=== PATIENT | female | born 1960 | race Two or more races ===

== ENCOUNTER → 2024-07-07 | Outpatient (CLI) | payer MEDICAID, SELFPAY ==
--- NOTE | 2024-07-07 13:36 | XR_ITS ---
Examination: Pelvic ultrasound, transabdominal, complete Technique: Transabdominal ultrasound of the pelvis performed using grayscale imaging Date and time of exam: July 07, 2024 at 1415 hours INDICATIONS: Postmenopausal vaginal bleeding beginning one month ago FINDINGS: Uterus 6.3 x 4.1 x 4.2 cm Abnormal thickened endometrial stripe 1.9 cm heterogeneous Ovaries obscured by bowel gas IMPRESSION: Abnormal thickened endometrial stripe, differential would include endometrial hyperplasia, malignant neoplasm of the endometrium, recommend MRI pelvis follow-up pre and postcontrast
== END | disposition home or self-care (01) ==
LOC: CDIM 13:31
PROVIDERS: PCP Nurse Practitioner Primary Care; Referring Provider Nurse Practitioner Primary Care; Visit Provider Nurse Practitioner Primary Care
DX: R93.89 Abnormal findings on diagnostic imaging of other specified body structures (principal)
CPT/HCPCS: 76856

== ENCOUNTER → 2024-08-16 | Outpatient (CLI) | payer MEDICAID, SELFPAY ==
--- NOTE | 2024-08-16 12:00 | XR_ITS ---
Examination: MRI pelvis with intravenous contrast. MRI pelvis without intravenous contrast. Date and time of exam: August 16, 2024 1245 hrs. Indications: Postmenopausal vaginal bleeding beginning May 2024, transvaginal pelvic sonogram July 07, 2024 thickened endometrium 19 mm, patient states pelvic pain beginning May 2024 Technique: Multiple axial, sagittal and coronal sections of the pelvis obtained. Transverse images, TR 6020, TE 107. T1 weighted transverse images, TR 582, TE 9.5. T2-weighted sagittal images, TR 4000, TE 105. T2-weighted sagittal images, TR 4000, TE 5. Coronal images, TR 4210, TE 107. Axial and coronal images are obtained post 10 cc intravenous injection, gadolinium. Findings: Anteverted uterus, 6 by 4 x 4 CM No discrete uterine mass Endometrial stripe on this study measures 4.7 mm without abnormal uterine enhancement on the postcontrast images No adnexal mass No free fluid in the pelvis Impression: Endometrial stripe on the precontrast images measures 4.7 mm No enhancing uterine mass on the postcontrast images Recommend repeat pelvic transvaginal sonography in 3 months
== END | disposition home or self-care (01) ==
PROVIDERS: PCP Nurse Practitioner Primary Care; Referring Provider Nurse Practitioner Primary Care; Visit Provider Nurse Practitioner Primary Care
DX: R93.89 Abnormal findings on diagnostic imaging of other specified body structures (principal)
CPT/HCPCS: 72197; A9579

== ENCOUNTER → 2024-09-06 | Outpatient (CLI) | payer MEDICAID, SELFPAY ==
--- NOTE | 2024-09-06 | XR_ITS ---
Examination: Diagnostic digital mammography, unilateral, left Computer aided detection 3-D breast Tomosynthesis, unilateral Date and time of exam: September 06, 2024 1046 hours INDICATIONS: Mammogram June 29, 2024 15 mm focal asymmetry retroareolar region left breast Technique: Nonmagnified MLO, CC views of the left breast have been obtained, reconstructed from 3-D Tomosynthesis images. R2 computer aided detection program utilized for evaluation of suspicious masses and/or abnormal calcifications. 3-D Tomosynthesis images obtained. Findings: Scattered areas of fibroglandular density 12 mm focal asymmetry remains retroareolar region left breast Impression: BI-RADS category 3: Probably benign findings One additional 6 month left mammogram follow-up is needed to document stability of retroareolar asymmetry described above
--- NOTE | 2024-09-06 10:30 | XR_ITS ---
Examination: Breast ultrasound, unilateral, left complete Date and time of exam: September 06, 2024 10:30 AM INDICATIONS: Mammogram June 29, 2024 15 mm focal asymmetry retroareolar region left breast, family history, daughter, breast cancer diagnosis 7 months ago Technique: Real-time michelle scale ultrasonographic imaging performed left breast including all 4 quadrants as well as nipple retroareolar and axillary region. Findings: Retroareolar oval mass circumscribed 10 x 3 x 9 mm IMPRESSION: BI-RADS Category 3: Probably benign findings One additional 6 month left breast sonogram is needed to document stability of the retroareolar nodule left breast
== END | disposition home or self-care (01) ==
LOC: CDIM 10:20
PROVIDERS: Referring Provider Nurse Practitioner Primary Care; Visit Provider Nurse Practitioner Primary Care
DX: R92.332 Mammographic heterogeneous density, left breast (principal); N64.89 Other specified disorders of breast; N63.42 Unspecified lump in left breast, subareolar
CPT/HCPCS: 76641; 77061; 77065; G0279

== ENCOUNTER 2024-09-16 09:30 | Outpatient (RCR) | payer MEDICAID, SELFPAY ==
--- NOTE | 2024-09-02 10:46 | PTNOTE_ITS ---
PT OP Initial Eval Patient Information Outpatient Physical Therapy Treatment Date: 09/02/24 Visit Reasons: Right shoulder pain Medical Diagnosis: Right Shoulder Pain Treatment Dx #1: Right Shoulder Pain Treatment Dx #2: Right Shoulder Mobility Deficits Start of Care: 09/02/24 Date of Onset: Apr 2024 Smoking Status Smoking Status: Never smoker Initial Assessment Subjective: Pt is a 64 y/o female reports of right shoulder pain (610) since Apr 2024. Xray showed moderate OA and MRI has not been done. Pt has limitation with lifting, chores, self care, cooking, cleaning, and performing recreational activities. Objective: Right Shoulder PROM: all motions are WFL with end range pain in all plane Right Shoulder AROM Flexion: 140 deg Abduction: 90 deg External Rotation: 80 deg Internal Rotation: 60 deg Right Shoulder MMTs: grossly 3-/5 Right Scapula MMTs: grossly 3-/5 Palpation: TTP supraspinatus tendon Assessment: Pt demonstrate right shoulder pain consistent with possible rotator cuff tear leading to difficulty with ADLs. Pt will attempt physical therapy if pain persist Pt will be refer back to provider for further consultation. Short Term and [employer] Goals 1) Increase right shoulder AROM WFL in 6 wks to be able to perform overhead motions 2) Decrease shoulder pain to 2/10 in 6 wks to be able to perform self care activities 3) Increase right shoulder MMTs grossly to 4/5 in 6 wks to be able to perform recreational activities 4) Indep with HEP Treatment Plan 1) Manual Therapy 2) Therapeutic Activities 3) Therapeutic Exercises 4) Modalities (ice, heat) Frequency and Duration: 2 x wk for 6 wks Certification Dates: 09/02/24 to 12/01/24 Procedure Charges OP PT Eval Mod Complex 30 minutes: Yes
--- NOTE | 2024-09-07 11:05 | PT.ODAYNRPT ---
PT Outpatient Daily Note OP Daily Note Outpatient Physical Therapy Treatment Date: 09/07/24 Visit Reasons: Right shoulder pain Subjective: Pt reports moderate shoulder pain today, mentioned that she has difficulty with reaching over head. Objective: Please see flow sheet for ther ex list. Assessment: Pt demonstrates poor activity tolerance due to pain response. Plan: Continue with POC. Length of Time (minutes) of Treatment: 30 Minutes Procedure Charges Therapeutic Exercise 30 minutes: Yes
--- NOTE | 2024-09-09 09:49 | PT.ODAYNRPT ---
PT Outpatient Daily Note OP Daily Note Outpatient Physical Therapy Treatment Date: 09/09/24 Visit Reasons: Right shoulder pain Subjective: Pt's shoulder still hurts. No change in pain or overall symptoms. Objective: Please see flow chart for list of ther ex performed Assessment: no change in pain post PT session; patient demonstrate improved shoulder AAROM in flexion and scaption Plan: Continue with PT Length of Time (minutes) of Treatment: 30 Minutes Procedure Charges Therapeutic Exercise 30 minutes: Yes
--- NOTE | 2024-09-14 09:53 | PT.ODAYNRPT ---
PT Outpatient Daily Note OP Daily Note Outpatient Physical Therapy Treatment Date: 09/14/24 Visit Reasons: Right shoulder pain Subjective: Pt reports shoulder is about the same. Objective: Please see flow sheet for ther x list. Assessment: Pt instructed on isometrics exercises for shoulder pt completed with pain and muscle fatigue. Plan: Continue with POC. Length of Time (minutes) of Treatment: 30 Minutes Procedure Charges Therapeutic Exercise 30 minutes: Yes
--- NOTE | 2024-09-16 09:49 | PT.ODAYNRPT ---
PT Outpatient Daily Note OP Daily Note Outpatient Physical Therapy Treatment Date: 09/16/24 Visit Reasons: Right shoulder pain Subjective: Pt's pain is about the same. Pt continues to have difficulty lifting her arm for overhead motions. Objective: Please see flow derrick for list of ther ex performed Assessment: no change in overall shoulder pain post PT session. Pt demonstrate slight improvement with flexion and scaption AAROM Plan: Continue with PT Length of Time (minutes) of Treatment: 30 Minutes Procedure Charges Therapeutic Exercise 30 minutes: Yes
== END 2024-09-16 23:59 | disposition home or self-care (01) ==
LOC: CPTX 09:30
PROVIDERS: PCP Nurse Practitioner Primary Care; Referring Provider Nurse Practitioner Primary Care; Visit Provider Nurse Practitioner Primary Care
DX: M25.511 Pain in right shoulder (principal); M19.011 Primary osteoarthritis, right shoulder
CPT/HCPCS: 97110; 97162

== ENCOUNTER 2024-09-27 10:30 | Outpatient (RCR) | payer MEDICAID, SELFPAY ==
--- NOTE | 2024-09-21 10:32 | PT.ODAYNRPT ---
PT Outpatient Daily Note OP Daily Note Outpatient Physical Therapy Treatment Date: 09/21/24 Visit Reasons: right shoulder pain Subjective: Pt's shoulder is 20% better and will like to continue physical therapy. Pt still notice pain and numbness down the arm but it's been less intense Objective: Please see flow chart for list of ther ex performed Assessment: progressing with shoulder AAROM in flexion and scaption, however, slight pain with scaption AAROM on finger ladder but able to complete instructed reps Plan: Continue with PT Length of Time (minutes) of Treatment: 30 Minutes Procedure Charges Therapeutic Exercise 30 minutes: Yes
--- NOTE | 2024-09-23 15:17 | PT.ODAYNRPT ---
PT Outpatient Daily Note OP Daily Note Outpatient Physical Therapy Treatment Date: 09/23/24 Visit Reasons: right shoulder pain Subjective: Pt reports R shoulder hurting more today feels it is due to the cold weather. Objective: Please see flow sheet for ther ex list. Assessment: Regressed interventions to accommodate reported pain. Plan: Continue with POC. Length of Time (minutes) of Treatment: 30 Minutes Procedure Charges Therapeutic Exercise 30 minutes: Yes
--- NOTE | 2024-09-27 12:24 | PT.ODS1RPT ---
PT OP Progress/Discharge Note Date of Service: 09/27/24 Progress Note/DC Note Progress Note/Discharge Note: DC Note Patient Information Visit Reasons: right shoulder pain Medical Diagnosis: Right Shoulder Pain Treatment Dx #1: Right Shoulder Pain Service Continue Service or Discharge: Discharge Discharge Date: 09/27/24 Status Subjective: Pt's shoulder is the same and continues to hurt. Pt mentioned she has limitation with ADLs, lifting the arms, and perform chores. Minimal changes with physical therapy. Objective: Right Shoulder AROM Flexion: 140 deg Abduction: 95 deg External Rotation: 90 deg Internal Rotation: 60 deg Right Shoulder MMTs: grossly 3/5 Right Scapula MMTs: grossly 3/5 Palpation: TTP supraspinatus tendon Assessment: Pt continues to have right shoulder pain leading to difficulty with ADLs. Minimal progress towards physical therapy noted. Recommend shoulder MRI to help rule in/out nature of pain. Pt was instructed on HEP last session and educated to continue exercises to maintian overall mobility. Pt performed all exercises safely, thank you for your referrals. Plan: D/C home with HEP and follow up with MD MELTON Recommend shoulder MRI Procedure Charges Therapeutic Exercise 30 minutes: Yes
--- NOTE | 2024-10-07 13:10 | PC.SS ---
SS follow up note; SS was contacted by patient's nurse and she informed SS that patient's family was requesting to Speak to SS. Patient's daughters and patient's son present at the time of encounter. Patient's daughter, Rosa expressed concerns in regards to discharge plan, she expressed feeling rushed in regards to discharge disposition. At the time there is one accepting facility that accepted patient under hospice care, however it's in [place], which family has declined and expressed that it's to far out and could not drive far distance. SS reported they are able to have a hospice agency follow patient at home as well, however Family expressed they are not able to provide care for patient at home. Patient's daughter, Rosa reported that charge nurse, Lyudmila informed them that patient is able to remain in the hospital until further notice. While SS was speaking to family, Darryn Concepcion arrived. Following a family meeting in the conference room. Dr. Marvin present as well as patient's family. Family expressed their concerns and reported they would like patient to continue on IV Morphine drip. SS consulted with Dr. Glynn and situation will be reevaluated daily. SS will stand by for further needs.
== END 2024-10-14 23:59 | disposition home or self-care (01) ==
LOC: CPTX 10:30
PROVIDERS: PCP Nurse Practitioner Primary Care; Referring Provider Nurse Practitioner Primary Care; Visit Provider Nurse Practitioner Primary Care
DX: M25.511 Pain in right shoulder (principal); M19.011 Primary osteoarthritis, right shoulder
CPT/HCPCS: 97110

== ENCOUNTER → 2024-12-20 | Outpatient (CLI) | payer MEDICAID, SELFPAY ==
--- NOTE | 2024-12-20 14:00 | XR_ITS ---
MRI shoulder, right, without contrast. Date and time: December 20, 2024 1429 hours INDICATIONS: Lifting injury to the shoulder April 26, 2024 with persistent shoulder pain Technique: Multiple axial, sagittal and coronal sections of the shoulder have been obtained. Siemens high-resolution 1.5 Janet MRI scanner is utilized. Axial fat-suppressed sections, TR 2350, TE 18 T2-weighted coronal fat-saturated images, TR 3500, TE 7100 T1-weighted coronal images, TR 500, TE 15 T2-weighted sagittal fat-saturated images, TR 3500, TE 57 T1-weighted sagittal sections, TR 504, TE 13. Findings: 4 cm full-thickness rotator cuff tear Subscapularis insertion is intact. Subscapularis bursa is small. Long head of the biceps is in the bicipital groove. No definite tear of the biceps superior labral anchor is seen. Retraction of the musculotendinous junction of the rotator cuff is prominent. Tendinosis pattern is moderate. Distance between the acromium and humeral head is 2 mm Atrophy of the supraspinatus muscle is severe. Atrophy of the infraspinatus muscle is severe. Sagittal sections demonstrate a horizontal acromion. Acromioclavicular joint demonstrates moderate osteoarthritis. Osacromiale is not identified. Anterior superior posterior labral tears. Bony glenoid fossa on the sagittal sections does not demonstrate osseous defect. Occult fracture or area of avascular necrosis is not seen. Acromioclavicular joint separation is not visible. Defect in the posterolateral margin of the humeral head is not seen Impression: 4 cm full-thickness rotator cuff tear Anterior superior posterior labral tears
== END | disposition home or self-care (01) ==
LOC: SMRI 13:25
PROVIDERS: PCP Nurse Practitioner Primary Care; Referring Provider Nurse Practitioner Primary Care; Visit Provider Nurse Practitioner Primary Care
DX: M75.121 Complete rotator cuff tear or rupture of right shoulder, not specified as traumatic (principal); S43.431A Superior glenoid labrum lesion of right shoulder, initial encounter; X58.XXXA Exposure to other specified factors, initial encounter
CPT/HCPCS: 73221

== ENCOUNTER 2025-04-21 06:55 | Day surgery (SDC) | payer MEDICARE, SELFPAY ==
--- NOTE | 2025-04-20 10:20 | EKG_ITS ---
[facility] Test Date: 2025-04-20 Pat Name: RUFINA MEJIA Department: Room: - Gender: Female Academic Physician: ALEXANDRO : [id number] Requested By: Christiano Simmons Order Number: [id number] Reading MD: Christiano Simmons Measurements Intervals [place] Rate: 63 P: 36 CT: 177 QRS: 28 QRSD: 73 T: 52 QT: 393 QTc: 402 Interpretive Statements SINUS RHYTHM No previous ECG available for comparison /store/S0/[id number]
[2025-04-20 10:25] VITALS: BMI 23.8
[2025-04-20 11:14] LABS: Basophils # (Auto) 0.1 Thou/mm3 (0.0-0.2); Basophils % (Auto) 1 % (0-2.5); Eosinophils # (Auto) 0.4 Thou/mm3 (0.0-0.5); Eosinophils % (Auto) 4 % (0-10); Hematocrit 40.2 % (36.0-46.0); Hemoglobin 13.6 g/dL (12.0-16.0); Immature Granulocytes Auto 0.02 Thou/mm3 (0.00-0.00); Lymphocytes # (Auto) 3.3 Thou/mm3 (1.0-4.8); Lymphocytes % (Auto) 38 % (10-50); Mean Corpuscular HGB Conc 33.8 g/dl (31.0-37.0); Mean Corpuscular Hemoglobin 31.4 pg (25.0-35.0); Mean Corpuscular Volume 93 fL (80-100); Monocytes # (Auto) 0.7 Thou/mm3 (0.0-0.8); Monocytes % (Auto) 8 % (0-12); Neutrophils # (Auto) 4.4 Thou/mm3 (1.8-7.7); Neutrophils % (Auto) 50 % (37-80); Nucleated Red Blood Cell # 0.00 Thou/mm3 (0.00-0.00); Nucleated Red Blood Cell % 0 /100 WBC (0); Platelet Count 319 Thou/mm3 (140-440); RDW Standard Deviation 41.3 fL (36.4-46.3); Red Blood Count 4.33 Miln/mm3 (4.00-5.20); White Blood Count 8.8 Thou/mm3 (3.6-11.0)
[2025-04-20 11:21] LABS: Alanine Aminotransferase 21 U/L (10-49); Albumin, Serum 4.6 gm/dL (3.4-4.8); Albumin/Globulin Ratio 2.1 (1.2-2.2); Alkaline Phosphatase 91 U/L (46-116); Anion Gap 10 (7-16); Aspartate Amino Transferase 20 U/L (0-34); BUN/Creatinine Ratio 25 Ratio (12-20); Bilirubin,Total 1.6 mg/dL (0.3-1.2); Blood Urea Nitrogen 15 mg/dL (9-23); Calcium 10.5 mg/dL (8.3-10.6); Calcium (Corrected) 10.5 mg/dL (8.5-10.1); Carbon Dioxide 26.3 mMol/L (20.0-31.0); Chloride 106 mMol/L (98-107); Creatinine (Component) 0.6 mg/dL (0.6-1.3); Estimated Creatinine Clearance 69.8 mL/min (>60); Globulin 2.2 gm/dL (2.3-3.5); Glucose 93 mg/dL (74-106); Osmolality,Calculated 283 (275-295); Potassium 4.2 mMol/L (3.4-5.1); Sodium 142 mMol/L (136-145); Total Protein 6.8 gm/dL (5.7-8.2); eGFR > 60 See Note
[2025-04-20 11:22] LABS: INR 1.0 (0.9-1.3); Partial Thromboplastin Time 25.0 Seconds (22.0-36.0); Prothrombin Time 10.6 Seconds (9.0-12.2)
--- NOTE | 2025-04-20 13:38 | SUR.PREOP ---
Pt notified to come in at 0700 tomorrow for surgery.
[2025-04-21] VITALS (8 sets, daily range): BP systolic 111–133; BP diastolic 61–73; PULSE 63–82; RESP 13–20; TEMP 36.1–36.4; O2SAT 95–98; BMI 23.2
[2025-04-21] MEDS: RINGERS LACTATED 1000 ML 1,000 ML 20 ML IV (07:33)
--- NOTE | 2025-04-21 07:59 | SUR.PREOP ---
Patient expressed gratitude for prayer before their procedure.
--- NOTE | 2025-04-21 09:33 | PD.SUROPNT ---
Date of Procedure 04/21/25 Pre Op Diagnosis 1. Right rotator cuff tear 2 right shoulder impingement syndrome Post Op Diagnosis Same Procedure 1. Excision lateral end of the clavicle 2 excision coracoacromial ligament 3. Acromioplasty 4. Repair of rotator cuff 5. Manipulation under anesthesia Findings Patient has significant DJD at AC joint. There is a big osteophytes coming out from the anterior aspect of the acromial process and also from the lateral aspect. There is a big oval tear of the rotator cuff. Procedure Description The patient was given general endotracheal anesthesia. Right shoulder block was also given. Once satisfactory anesthesia was achieved patient was put in about 45?? sitting position with sandbag underneath the right shoulder blade. The part was thoroughly prepped and draped. A skin incision was made at the AC joint extending proximally towards the neck for a half inches and distally towards the arm for about couple of inches. Deeper dissection was carried out. Bleeding vessels were electrocoagulated as and when encountered. The soft tissue was reflected. Following that AC joint was exposed and AC joint was exposed. The deltoid muscle was reflected from the anterior and lateral aspect of the acromial process. It revealed 3 mm long anterior osteophytes from acromial process and 2 mm long osteophytes coming out from the lateral aspect. Following that a periosteal elevator was placed underneath the lateral end of the clavicle and lateral 3-4 mm was excised. The coracoacromial ligament was removed. Following that 2 mm from anterior aspect and 2 mm for line lateral aspect of the acromion process along with osteophytes were removed with the help of saw. With the help of curved osteotome the undersurface of the Acromial processes was chiseled out. That made more room between the superior surface of the head of the humerus and undersurface of the acromial process. Following that the rotator cuff was inspected. It revealed big oval tear, however most of the fibers were attached to the greater tuberosity. Wound was irrigated with antibiotic solution every 4-5 minutes. The left shoulder was manipulated at this time. The rotator cuff tear was repaired with 2-0 Vicryl. 2 drill holes were made on the acromial process and deltoid muscle was stitched back to it. Some reinforcement sutures were placed. The fat layer was closed with 2-0 Vicryl in interrupted fashion. The skin was closed with subcu Monocryl. After cleaning the wound Prineo tape was applied. Patient tolerated procedure well. Estimated blood loss 20 Prognosis in this case is good. Anesthesia GETA and other Pathology / specimen None Estimated Blood Loss 20 Surgeon Christiano Miramontes MD Surgical Staff Operation Date: 04/21/25 09:00 Case Staff Anesthesiologist: French Whitt RNlink wire fabric machine tender: Tabitha Busby
--- NOTE | 2025-04-21 09:50 | SUR.PHASEI ---
pt received from OR in recovery bay 1. pt asleep but responds to voice, breathing unlabored on room air. v/s stable. pt dressing to right shoulder cdi. report received from Dr. Whitt and Petra Potter.
--- NOTE | 2025-04-21 10:19 | SUR.PHASEI ---
pt able to tolerate oral fluids without difficulty swallowing or nausea/vomiting.
--- NOTE | 2025-04-21 10:46 | ESHP_ITS ---
RE: RFUINA MEJIA : 1960 DATE OF ADMISSION: 04/21/2025 The patient came to my office on for detailed preop history and physical examination. HISTORY OF PRESENTING COMPLAINT: The patient presented to me with a history of pain in the right shoulder. Pain is going on for the last few years, but the last few months is extremely painful. The patient graded intensity of pain to be 8-9/10. Unable to sleep. Quality of life and activities of daily living is affected. The patient is unable to sleep. The patient is unable to raise the right arm above the shoulder level. PAST MEDICAL HISTORY: The patient has history of high blood pressure. PAST SURGICAL HISTORY: Nil known. DRUG HISTORY: The patient is on, 1. Aspirin, which she stopped about a week back. 2. Valsartan 40 mg oral twice daily ALLERGIES: NIL KNOWN FAMILY AND SOCIAL HISTORY: The patient denies smoking, drinking, is not working. PHYSICAL EXAMINATION: GENERAL: Rather normal built person. VITAL SIGNS: Pulse is 82 per minute. Blood pressure 140/86. NECK: Soft, supple. No masses felt. Trachea is centrally placed. CARDIOVASCULAR SYSTEM: First and second heart sounds are normal. No murmur heard. RESPIRATORY SYSTEM: Bilateral vesicular breath sounds. CHEST: Clear. ABDOMEN: Soft. No masses felt. Bowel sounds present. BREAST EXAMINATION: Not indicated in this case. The patient is advised to see the family physician for regular examination. EXTREMITIES: Right shoulder examination revealed 2+ tenderness at AC joint and also subacromial and subdeltoid bursa. Active range of motion includes 0 to 80 degrees of abduction and 0 to 90 degrees of forward flexion. No further range of motion is possible. Internal rotation is severely restricted and painful. Impingement test, Nicolasa test and drop arm tests are positive. DIAGNOSTIC DATA: MRI scan confirmed complete rotator cuff tear, calcified tendinitis and DJD at AC joint. ASSESSMENT AND PLAN: Since the patient is symptomatic, therefore, right rotator cuff repair with Олег procedure was discussed and advised. Risks of anesthesia were explained and that includes, but not limited to reaction to anesthetic agents, cardiac arrest, rarely it might be fatal. Risks with outpatient include infection and if that happens, the patient may need further surgical procedure. Other risks include delayed healing, wound dehiscence, etc. No guarantees given regarding outcome of the procedure and/or relief of symptoms. Indeed, physical therapy is a very important component for successful outcome of surgery. The patient is advised and encouraged to be fully cooperative with the physical therapy. Surgery is booked for 04/21/2025. Appropriate lab work was done. DT: 09:42:31 TT: 09:54:00 Ref: [id number] - TID: [id number]
--- NOTE | 2025-04-21 11:00 | SUR.PHASEII ---
pt awake and alert, breathing unlabored on room air. v/s stable. pt dressing to right shoulder cdi, arm sling in place. pt able to ambulate to wheelchair with steady gait. d/c instructions given with friend Gali in room, all questions answered. pt d/c via wheelchair with all belongings.
== END 2025-04-21 11:00 | disposition home or self-care (01) ==
PROVIDERS: Anesthesiology; PCP Nurse Practitioner Primary Care; Referring Provider Orthopaedic Surgery; Visit Provider Orthopaedic Surgery
PROC: (CPT 23412; principal; 2025-04-21 09:00)
DX: M75.101 Unspecified rotator cuff tear or rupture of right shoulder, not specified as traumatic (principal); M75.41 Impingement syndrome of right shoulder; M19.011 Primary osteoarthritis, right shoulder; Z01.810 Encounter for preprocedural cardiovascular examination; M25.711 Osteophyte, right shoulder
CPT/HCPCS: 23412; 23120; 36415; 80053; 85025; 85610; 85730; 93005; A4217; A4649; J0690; J1100; J1580; J2250; J2371; J2704; J2765; J2795; J3010; J3490; J7120

== ENCOUNTER → 2025-05-17 | Outpatient (CLI) | payer MEDICARE, SELFPAY ==
--- NOTE | 2025-05-17 11:00 | XR_ITS ---
Examination: Breast ultrasound, unilateral, left complete Date and time of exam: May 17, 2025 1121 hours INDICATIONS: Family history breast cancer, retroareolar oval mass 10 x 3 x 9 mm on left breast sonogram September 06, 2024 Technique: Real-time michelle scale ultrasonographic imaging performed left breast including all 4 quadrants as well as nipple retroareolar and axillary region. Findings: No current cystic or solid mass IMPRESSION: BI-RADS Category 1: Negative study
--- NOTE | 2025-05-17 11:45 | XR_ITS ---
Examination: Diagnostic digital mammography, unilateral, left Computer aided detection 3-D breast Tomosynthesis, unilateral Date and time of exam: May 17, 2025, 11:33 AM INDICATIONS: Mammogram September 06, 2024 12 mm focal asymmetry retroareolar region left breast Technique: Nonmagnified MLO, CC views of the left breast have been obtained, reconstructed from 3-D Tomosynthesis images. R2 computer aided detection program utilized for evaluation of suspicious masses and/or abnormal calcifications. 3-D Tomosynthesis images obtained. Findings: Scattered areas of fibroglandular density. No suspicious nodule noted on the spot compression views Impression: BI-RADS category 2: Benign findings Return to your follow-up mammography
== END | disposition home or self-care (01) ==
LOC: CDIM 11:06
PROVIDERS: PCP Nurse Practitioner Primary Care; Referring Provider Nurse Practitioner Primary Care; Visit Provider Nurse Practitioner Primary Care
DX: R92.322 Mammographic fibroglandular density, left breast (principal); Z80.3 Family history of malignant neoplasm of breast
CPT/HCPCS: 76641; 77061; 77065; G0279

== ENCOUNTER → 2025-07-19 | Outpatient (CLI) | payer MEDICARE, SELFPAY ==
--- NOTE | 2025-07-19 09:30 | XR_ITS ---
Examination: Screening digital mammography, bilateral Computer aided detection 3-D breast Tomosynthesis, bilateral Date and time of exam: July 19, 2025, 0938 hours, compared to mammograms dating to January 04, 2021 Indication: Screening Technique: Nonmagnified MLO, CC views of the breasts to been obtained, reconstructed from 3-D Tomosynthesis images. R2 computer aided detection program utilized for evaluation of suspicious masses and/or abnormal calcifications. 3-D Tomosynthesis images obtained. Findings: Scattered areas of fibroglandular density. Benign calcifications. No interval suspicious masses Impression: BI-RADS category II: Benign Findings. Recommend 1 year follow-up mammogram.
== END | disposition home or self-care (01) ==
LOC: CDIM 09:15
PROVIDERS: PCP Nurse Practitioner Primary Care; Referring Provider Nurse Practitioner Primary Care; Visit Provider Nurse Practitioner Primary Care
DX: Z12.31 Encounter for screening mammogram for malignant neoplasm of breast (principal); R92.323 Mammographic fibroglandular density, bilateral breasts; R92.1 Mammographic calcification found on diagnostic imaging of breast
CPT/HCPCS: 77063; 77067